=== PATIENT | female | born 1945 | race Caucasian/White ===

== ENCOUNTER → 2019-01-21 | Day surgery (SDC) | payer MEDICARE ==
[2019-01-06 16:25] LABS: BASOPHILS # (AUTO) 0.1 (0.0-0.1); BASOPHILS % 0.9 % (0.0-1.0); EOSINOPHILS # (AUTO) 0.2 (0.0-0.4); EOSINOPHILS % 3.4 % (0.0-6.0); HEMATOCRIT 39.2 % (34.2-44.1); HEMOGLOBIN 12.7 g/dL (12.0-16.0); LYMPHOCYTES # (AUTO) 1.9 (1.0-3.2); LYMPHOCYTES % 31.9 % (18.0-39.1); MEAN CORPUSCULAR HEMOGLOBIN 29.7 pg (28-32); MEAN CORPUSCULAR HGB CONC 32.4 g/dL (31-35); MEAN CORPUSCULAR VOLUME 91.6 fL (81-99); MONOCYTES # (AUTO) 0.7 (0.2-0.8); MONOCYTES % 11.1 % (4.4-11.3); NEUTROPHILS # (AUTO) 3.1 (2.1-6.9); NEUTROPHILS % 52.4 % (38.7-80.0); PLATELET COUNT 222 x10e3/uL (140-360); RED BLOOD COUNT 4.28 x10e6/uL (3.6-5.1); RED CELL DISTRIBUTION WIDTH 13.5 % (11.7-14.4)
[~2019-01-21] MED LIST: APPLE CIDER VI300 MG PO; ASPIRIN81 MG PO; CEFTIN500 MG PO; COD LIVER OIL PO; CRANBERRY400 MG PO; D-MANNOSE PO; ECHINACEA125 MG PO; FENTANYL CITRATE/PF 100MCG/2 ML INJ ONE; GLUCAGON FOR INJ 1 MG VIAL ONE; HYOSCYAMINE 0.125 MG TAB ONE; LOSARTAN-HCTZ1 EACH PO; MACROBID 100 M100 MG PO; MAGNESIUM400 MG PO; MIDAZOLAM HCL 2 MG/2 ML VIAL ONE; MULTIVITAMINS1 EAC7 PO; PHENYLEPHRINE HCL 1% 10 MG/ML VIAL ONE; PROBIOTIC & AC1 EACH PO; PROPOFOL IV EMULSION 10 MG/ML 50 ML VIAL ONE; VITAMIN A PO; VITAMIN B PO; VITAMIN C WIT1000 MG PO; VITAMIN D3400 UNIT PO; VITAMIN K100 MCG PO; ZINC SULFATE220 M1 PO; [UNRECOGNIZED DRUG - OTHER] PO; [UNRECOGNIZED DRUG - OTHER] PO
--- OUTSIDE RECORDS SUMMARY | 2019-01-21 07:38 | XMS REPORT ---
Author Author [facility] Address Unknown Phone Unavailable Care Team Providers Care Supervisor [employer] Name Role Phone Unavailable Unavailable Problems This patient has no known problems. Allergies, Adverse Reactions, Alerts This patient has no known allergies or adverse reactions. Medications This patient has no known medications. Results Test Description Test Time Test Comments Text Results Atomic Results Result Comments SCR MAMM BILATERAL PRICILLA CAD DIGITAL 2018-03-25 13:44:45 - SCR MAMM BILATERAL PRICILLA CAD DIGITALBILATERAL DIGITAL SCREENING MAMMOGRAM 3D/2D WITH CAD: 03/25/2018CLINICAL: Asymptomatic. Digital breast tomosynthesis was performed in addition to routine CC and MLO views. Current mammographic images were evaluated by either a [employer] M-Vu or a [employer] Image[employer]er CAD (computer aided detection system). Comparison is made to exams dated 03/22/2017 mammogram, 02/21 mammogram, and 03/15/2015 mammogram - [facility]. There are scattered fibroglandular tissues in both breasts. There are benign vascular calcifications in both breasts. No suspicious mass, architectural distortion, malignant type calcification, or lymph node abnormality detected. Breast architecture is stable compared to prior exams.IMPRESSION: BENIGNThere is no mammographic evidence of malignancy. Resume annual screening mammography in one year. Davina hollingsworth/saurabh:03/25/2018 13:44:45 Machine Marker: Kellee DONNELLY, [facility] sent: BIRADS 1-2 Normal Mammogram BI-RADS: 2 Benign
[2019-01-21 09:46] VITALS: BP 128/75
--- NOTE | 2019-01-21 13:14 | Operative Report ---
DATE OF PROCEDURE: 01/21/2019 SURGEON: Maurilio Natarajan MD PROCEDURES: EGD with biopsies and a colonoscopy with polypectomy. INDICATIONS FOR EGD: Dyspepsia. INDICATIONS FOR COLONOSCOPY: Surveillance colonoscopy, personal history of colon polyp. MEDICATIONS: The patient was done under MAC, please see anesthesiologist's note. PROCEDURE IN DETAIL: With the patient in left lateral decubitus position, a flexible fiberoptic Olympus gastroscope was introduced into the esophagus under direct visualization without any difficulty. There was some patchy erythema noted in distal esophagus. A single erosion was noted in the distal esophagus also. Minute tongues of velvety red mucosa were noted to extend proximally from the GE junction. Biopsies were obtained to rule out Woodall's. The scope was then advanced with ease into the stomach traversing a small hiatal hernia. Mucosa overlying the antrum and the body revealed some patchy erythema and [id number] edema, and biopsies were obtained and sent to stain for H. pylori. Pylorus was of normal contour and shape, it was intubated with ease and the scope was advanced all the way to the second portion of the duodenum. The scope was then withdrawn slowly, mucosa overlying the proximal second portion and duodenal bulb grossly appeared to be within normal limits. Biopsies were obtained to rule out sprue. A minute approximately 5 mm nodule was noted in the duodenal bulb that was biopsied. The scope was then withdrawn back into the stomach and retroflexed, mucosa overlying the fundus and the cardia appeared to be within normal limits. The scope was then straightened out, it was subsequently withdrawn, and the patient tolerated the procedure well. IMPRESSION: 1. Distal esophagitis. 2. Rule out Woodall esophagus. 3. Small hiatal hernia. 4. Gastritis, biopsied, biopsies sent to stain for Helicobacter pylori. 5. Duodenal bulb nodule, biopsied. 6. Rule out sprue. PLAN: Follow up histology. Increase Protonix to 40 mg one p.o. before meals b.i.d. The patient was then turned around and after adequate lubrication of the anal canal, a flexible fiberoptic Olympus colonoscope was inserted into the rectum with ease and advanced all the way to the cecum. Prep overall was suboptimal, but visualization was fair after extensive lavage. The scope was then withdrawn slowly, whatever was visualized the mucosa overlying the cecum appeared to be within normal limits. Of note, the patient had pandiverticulosis. One polyp was removed per snare electrocautery from the distal ascending colon. The site was hemoclipped x1. The transverse and descending grossly other than for diverticular disease appeared to be within normal limits. Two minute polyps were cold biopsied in the sigmoid colon. The rectum appeared to be within normal limits. The scope was then retroflexed into the distal rectum and small internal hemorrhoids were noted, none of which was actively bleeding. The scope was then straightened out, it was subsequently withdrawn, and the patient tolerated the procedure well. IMPRESSION: 1. Suboptimal prep, but visualization was fair after extensive lavage. 2. Pandiverticulosis. 3. Ascending colon polyp, hot snared and site hemoclipped x1. 4. Sigmoid colon polyps, minute, cold biopsy. 5. Internal hemorrhoids, none actively bleeding. PLAN: Follow up histology. Initiate high-fiber, low-fat diet. Initiate high-fiber supplement. The patient might benefit from a followup colonoscopy in 2 to 3 years. Maurilio Natarajan MD [facility] /[id number] cc: Edward Natarajan MD
== END | disposition home or self-care (01) ==
LOC: OR 07:28
PROVIDERS: ATTEND Internal Medicine Gastroenterology
DX: K29.70 Gastritis, unspecified, without bleeding (principal); K29.80 Duodenitis without bleeding; K21.0 Gastro-esophageal reflux disease with esophagitis; D12.2 Benign neoplasm of ascending colon; K44.9 Diaphragmatic hernia without obstruction or gangrene; Z86.010 Personal history of colon polyps; F41.9 Anxiety disorder, unspecified; I10 Essential (primary) hypertension; K31.9 Disease of stomach and duodenum, unspecified; K57.30 Diverticulosis of large intestine without perforation or abscess without bleeding; K63.5 Polyp of colon; K64.8 Other hemorrhoids; Z01.810 Encounter for preprocedural cardiovascular examination; Z01.812 Encounter for preprocedural laboratory examination
CPT/HCPCS: 36415; 43239; 45380; 45385; 85025; 88305; 88312; 93005; J1610; J2250; J2370; J2704; J3010; 45378

== ENCOUNTER → 2020-12-23 | Outpatient (CLI) | payer MEDICARE ==
[~2020-12-23] MED LIST changes: -FENTANYL CITRATE/PF 100MCG/2 ML INJ ONE; -GLUCAGON FOR INJ 1 MG VIAL ONE; -HYOSCYAMINE 0.125 MG TAB ONE; -MIDAZOLAM HCL 2 MG/2 ML VIAL ONE; -PHENYLEPHRINE HCL 1% 10 MG/ML VIAL ONE; -PROPOFOL IV EMULSION 10 MG/ML 50 ML VIAL ONE
== END ==
LOC: RAD 11:29
PROVIDERS: ATTEND Urology
DX: N20.0 Calculus of kidney (principal)
CPT/HCPCS: 74018

== ENCOUNTER → 2021-01-19 | Day surgery (SDC) | payer MEDICARE ==
[~2021-01-19] MED LIST changes: +AMIODARONE HCL200 MG PO; +GENTAMICIN 80MG/NS 100 ML 200 ML IV ONE; +LOSARTAN POTASS25 MG PO; +MEPERIDINE HCL INJ 25 MG/ML VIAL ONE; +METOPROLOL SUCC25 MG PO; +METOPROLOL SUCC50 MG PO; +SODIUM CHLORIDE 0.9% 50ML 50 ML ONE
[2021-01-19 08:41] LABS: BASOPHILS # (AUTO) 0.1 (0.0-0.1); EOSINOPHILS # (AUTO) 0.3 (0.0-0.4); EOSINOPHILS % 4.7 % (0.0-6.0); HEMATOCRIT 35.2 % (34.2-44.1); HEMOGLOBIN 11.1 g/dL (12.0-16.0); LYMPHOCYTES # (AUTO) 1.3 (1.0-3.2); LYMPHOCYTES % 22.3 % (18.0-39.1); MEAN CORPUSCULAR HEMOGLOBIN 29.1 pg (28-32); MEAN CORPUSCULAR HGB CONC 31.5 g/dL (31-35); MEAN CORPUSCULAR VOLUME 92.1 fL (81-99); MONOCYTES # (AUTO) 0.7 (0.2-0.8); MONOCYTES % 12.8 % (4.4-11.3); NEUTROPHILS # (AUTO) 3.4 (2.1-6.9); NEUTROPHILS % 58.9 % (38.7-80.0); PLATELET COUNT 248 x10e3/uL (140-360); RED BLOOD COUNT 3.82 x10e6/uL (3.6-5.1); RED CELL DISTRIBUTION WIDTH 13.3 % (11.7-14.4)
[2021-01-19 11:45] VITALS: BP 129/81
== END | disposition home or self-care (01) ==
LOC: OR 08:05
PROVIDERS: ATTEND Urology
DX: N20.1 Calculus of ureter (principal); N13.30 Unspecified hydronephrosis; Z46.6 Encounter for fitting and adjustment of urinary device; K21.9 Gastro-esophageal reflux disease without esophagitis; I10 Essential (primary) hypertension; I49.9 Cardiac arrhythmia, unspecified; Z01.812 Encounter for preprocedural laboratory examination; Z20.822 Contact with and (suspected) exposure to COVID-19; Z87.440 Personal history of urinary (tract) infections; Z86.19 Personal history of other infectious and parasitic diseases
CPT/HCPCS: 36415; 52356; 74420; 85025; 87086; 87186; 88300; C1758; C1769; C2617; J0690; J1580; J2175; U0002

== ENCOUNTER → 2021-02-16 | Day surgery (SDC) | payer MEDICARE ==
[~2021-02-16] MED LIST changes: +BELLADONNA/OPIUM 30 MG SUPP RC ONE; +DEXAMETHASONE SOD PHOS INJ 4 MG/ML SDV ONE; +EPHEDRINE SULFATE INJ 50 MG/ML VIAL ONE; +IOPAMIDOL 300MG/ML 50ML INFUS..BTL IV ONE; +LIDOCAINE HCL 2% LOCAL INJ 5 ML SDV VIAL INJ ONE; -MEPERIDINE HCL INJ 25 MG/ML VIAL ONE; +NITROFURANTOIN100 MG PO; +ONDANSETRON HCL INJ 2MG/ML 2ML 2 MG/ML VIAL ONE; +POVIDONE IODINE 0.05% 0.05 % ML PO ONE; +PROPOFOL IV EMULSION 10 MG/ML 20 ML VIAL ONE; +SEVOFLURANE INHAL SOLN 250 ML PEN BTL ONE
[2021-02-16 12:05] VITALS: BP 114/59
== END | disposition home or self-care (01) ==
LOC: OR 08:24
PROVIDERS: ATTEND Urology
DX: N20.0 Calculus of kidney (principal); Z46.6 Encounter for fitting and adjustment of urinary device; Z87.440 Personal history of urinary (tract) infections; I45.6 Pre-excitation syndrome; Z01.812 Encounter for preprocedural laboratory examination; Z20.822 Contact with and (suspected) exposure to COVID-19
CPT/HCPCS: 52353; 74420; 87086; 87186; C1758; J0690; J1580; Q9967; U0002; J1100; J2001; J2405

== ENCOUNTER → 2022-08-17 | Outpatient (CLI) | payer MEDICARE ==
[~2022-08-17] MED LIST changes: -BELLADONNA/OPIUM 30 MG SUPP RC ONE; -DEXAMETHASONE SOD PHOS INJ 4 MG/ML SDV ONE; -EPHEDRINE SULFATE INJ 50 MG/ML VIAL ONE; -GENTAMICIN 80MG/NS 100 ML 200 ML IV ONE; -IOPAMIDOL 300MG/ML 50ML INFUS..BTL IV ONE; -LIDOCAINE HCL 2% LOCAL INJ 5 ML SDV VIAL INJ ONE; -ONDANSETRON HCL INJ 2MG/ML 2ML 2 MG/ML VIAL ONE; -POVIDONE IODINE 0.05% 0.05 % ML PO ONE; -PROPOFOL IV EMULSION 10 MG/ML 20 ML VIAL ONE; -SEVOFLURANE INHAL SOLN 250 ML PEN BTL ONE; -SODIUM CHLORIDE 0.9% 50ML 50 ML ONE
== END ==
LOC: RAD 12:28
PROVIDERS: ATTEND Urology
DX: N20.0 Calculus of kidney (principal)
CPT/HCPCS: 74018